=== PATIENT | female | born 1965 | race Caucasian/White ===

== ENCOUNTER 2016-11-15 17:09 | Emergency (ER) | payer OTHER ==
[2016-11-15 17:20] VITALS: TEMP 97.5
--- NOTE | 2016-11-15 17:53 | EDPHY ---
H & P Stated Complaint: awakened at 0400 with cp/l shoulder pain/resolved/dizzyness this afternoon Time Seen by Provider: 11/15/16 17:53 HPI/ROS: HPI: This is a 51-year-old female who presents with Chief Complaint: Chest discomfort Location: Chest Quality: Discomfort Duration: started at 0400 Signs and Symptoms: No nausea, no vomiting, no shortness of breath, no sweating , no palpitations, + cardiac awareness Timing: Sudden, lasting 10 minutes, resolved Severity: [id number] Context: Patient reports with complaints of waking this morning awakened chest discomfort this does dull and mild that lasted 10 minutes, nonradiating, self resolved without any treatment. This afternoon approximately 2 hours ago she was at yoga meditating when she felt her heart beating loudly and felt mild dizziness; denies heart racing/palpitations/room spinning. No fever/cough. Patient has history of hypertension and reports compliance taking amlodipine and hydrochlorothiazide. Patient does report she has only had 1 glass of water today. She reports no prior cardiac history/has never had a stress test. She did have an EGD 2-3 years ago and was diagnosed with gastritis and H pylori. She noted that she was anxious at times at during this period but has not had similar episodes since. She ate Risotto and drink wine last night. Grandparents on both sides have cardiac issues but her parents do not. Modifying Factors: None Comment: ROS: see HPI Constitutional: No fever, no chills, no weight loss Eyes: No blurred vision Respiratory: No shortness of breath, no cough Cardiovascular: + chest pain Gastrointestinal: No nausea, no vomiting, no diarrhea Genitourinary: No dysuria Extremities: No myalgias Neurologic: No weakness, no numbness Skin: No rashes Hematologic: No bruising, no bleeding MEDICAL/SURGICAL/SOCIAL HISTORY: Medical history: Generally healthy. Does not take any regular medications. Surgical history: Denies Social history: . CONSTITUTIONAL: Pleasant calm adult white female, appears younger than stated age, awake and alert, no obvious distress HEENT: Atraumatic and normocephalic, PERRL, EOMI. Tympanic membranes clear. Oropharynx clear, no exudate and moist pink mucosa. Airway patent. No lymphadenopathy. No meningismus. Cardiovascular: Normal S1/S2, mild tachycardia, regular rhythm, without murmur rub or gallop. PULMONARY/CHEST: Symmetrical and nontender. Clear to auscultation bilaterally. Good air movement. No accessory muscle usage. ABDOMEN: Soft, nondistended, nontender, no rebound, no guarding, no peritoneal signs, no masses or organomegaly. No CVAT. EXTREMITIES: 2/2 pulses, no deformities, no clubbing, no cyanosis or edema. NEUROLOGICAL: no focal neuro deficits. GCS 15. SKIN: Warm and dry, no erythema. no rash. Good capillary refill. Source: Patient Exam Limitations: No limitations - Personal History LMP (Females 10-55): 1-7 Days Ago Current Tetanus/Diphtheria Vaccine: Yes - Medical/Surgical History Hx Asthma: No Hx Chronic Respiratory Disease: No Hx Diabetes: No Hx Cardiac Disease: No Hx Renal Disease: No Hx Cirrhosis: No Hx Alcoholism: No Hx HIV/AIDS: No Hx Splenectomy or Spleen Trauma: No Other PMH: htn - Social History Smoking Status: Never smoked Constitutional: Initial Vital Signs Temperature (C) 36.4 C 11/15/16 17:17 Heart Rate 113 H 11/15/16 17:17 Respiratory Rate 20 11/15/16 17:17 Blood Pressure 173/96 H 11/15/16 17:17 O2 Sat (%) 98 11/15/16 17:17 O2 Delivery Mode Room Air Allergies/Adverse Reactions: thimerosal Allergy (Verified 11/15/16 17:16) Home Medications: Medication Instructions Recorded Amlodipine Besylate 11/15/16 Hydrochlorothiazide 11/15/16 Medical Decision Making - Diagnostics Imaging Results: Imaging Impressions Chest X-Ray 11/15/16 18:02 Impression: No acute thoracic abnormality. Procedures: 12 lead EKG: Indication: Chest discomfort Rhythm: Sinus tachycardia, rate of 101 beats per minute [place]: Normal Intervals: Normal QRS: Normal ST segments: Normal INTERPRETATION: Normal EKG The 12 lead EKG was interpreted by myself and with attending. ED Course/Re-evaluation: EKG, chest x-ray, labs ordered Noted to be mild tachycardic upon arrival; given 1 L normal saline SANDOVAL risk score equals 19; which is low risk D-dimer/proBNP and 1st troponin/TSH are unremarkable EKG does not show any acute skin changes Chest x-ray reviewed and shows no pneumothorax/effusion/opacity After 1 L of normal saline tachycardia resolved and heart remain remained in the 70s and 80s for the remainder 3 hours. 2145: 2nd troponin is negative Patient will be discharged home with Cardiology follow-up recommendation for outpatient nuclear stress test. Repeat 3 hour troponin negative Patient is currently pain-free. Suspect mild dehydration cause increased heart rate and patient was sensitive to this physiological change. Due to her GI history, family history and age; recommend follow up with Gastroenterology and Cardiology Differential Diagnosis: Chest pain including but not limited to myocardial ischemia, pulmonary embolus, chest wall pain, pleural inflammation and pulmonary infectious causes. - Data Points Laboratory Results: Laboratory Results 11/15/16 17:40 11/15/16 17:40 11/15/16 11/15/16 11/15/16 21:19 17:40 17:40 WBC RBC Hgb Hct MCV MCH MCHC RDW Plt Count MPV Neut % (Auto) Lymph % (Auto) [place] % (Auto) Eos % (Auto) Baso % (Auto) Nucleat RBC Rel Count Absolute Neuts (auto) Absolute Lymphs (auto) Absolute Monos (auto) Absolute Eos (auto) Absolute Basos (auto) Absolute Nucleated RBC Immature Gran % Immature Gran # PT 12.4 SEC SEC (12.0-15.0) INR 0.93 (0.83-1.16) APTT 23.5 SEC SEC (23.0-38.0) D-Dimer < 0.27 ug/mLFEU ug/mLFEU (0.00-0.50) Sodium 137 mEq/L mEq/L (134-144) Potassium 3.5 mEq/L mEq/L (3.5-5.2) Chloride 101 mEq/L mEq/L (97-110) Carbon Dioxide 18 mEq/l L mEq/l (22-31) Anion Gap 18 mEq/L H mEq/L (8-16) BUN 16 mg/dL mg/dL (7-23) Creatinine 0.8 mg/dL mg/dL (0.6-1.0) Estimated GFR > 60 Glucose 95 mg/dL mg/dL (70-100) Calcium 10.2 mg/dL mg/dL (8.5-10.4) Total Bilirubin 0.7 mg/dL mg/dL (0.1-1.4) Conjugated Bilirubin 0.3 mg/dL mg/dL (0.0-0.5) Unconjugated Bilirubin 0.4 mg/dL mg/dL (0.0-1.1) AST 26 IU/L IU/L (14-46) ALT 43 IU/L IU/L (9-52) Alkaline Phosphatase 58 IU/L IU/L (38-126) Troponin I < 0.012 ng/mL ng/mL < 0.012 ng/mL ng/mL (0.000-0.034) (0.000-0.034) NT-Pro-B Natriuret Pep 99 pg/mL pg/mL (0-125) Total Protein 8.1 g/dL g/dL (6.3-8.2) Albumin 5.1 g/dL H g/dL (3.5-5.0) Lipase 122 IU/L IU/L (23-300) TSH 3.520 uIU/mL uIU/mL (0.465-4.680) 11/15/16 17:40 WBC 11.19 10^3/uL H 10^3/uL (3.80-9.50) RBC 4.96 10^6/uL 10^6/uL (4.18-5.33) Hgb 16.1 g/dL g/dL (12.6-16.3) Hct 44.9 % % (38.0-47.0) MCV 90.5 fL fL (81.5-99.8) MCH 32.5 pg pg (27.9-34.1) MCHC 35.9 g/dL g/dL (32.4-36.7) RDW 11.9 % % (11.5-15.2) Plt Count 334 10^3/uL 10^3/uL (150-400) MPV 9.5 fL fL (8.7-11.7) Neut % (Auto) 72.2 % % (39.3-74.2) Lymph % (Auto) 19.4 % % (15.0-45.0) [place] % (Auto) 7.3 % % (4.5-13.0) Eos % (Auto) 0.3 % L % (0.6-7.6) Baso % (Auto) 0.4 % % (0.3-1.7) Nucleat RBC Rel Count 0.0 % % (0.0-0.2) Absolute Neuts (auto) 8.08 10^3/uL H 10^3/uL (1.70-6.50) Absolute Lymphs (auto) 2.17 10^3/uL 10^3/uL (1.00-3.00) Absolute Monos (auto) 0.82 10^3/uL H 10^3/uL (0.30-0.80) Absolute Eos (auto) 0.03 10^3/uL 10^3/uL (0.03-0.40) Absolute Basos (auto) 0.05 10^3/uL 10^3/uL (0.02-0.10) Absolute Nucleated RBC 0.00 10^3/uL 10^3/uL (0-0.01) Immature Gran % 0.4 % % (0.0-1.1) Immature Gran # 0.04 10^3/uL 10^3/uL (0.00-0.10) PT INR APTT D-Dimer Sodium Potassium Chloride Carbon Dioxide Anion Gap BUN Creatinine Estimated GFR Glucose Calcium Total Bilirubin Conjugated Bilirubin Unconjugated Bilirubin AST ALT Alkaline Phosphatase Troponin I NT-Pro-B Natriuret Pep Total Protein Albumin Lipase TSH Medications Given: Discontinued Medications Sodium Chloride (Ns) 1,000 mls @ 0 mls/hr IV EDNOW ONE; Wide Open PRN Reason: Protocol Stop: 11/15/16 18:03 Last Admin: 11/15/16 18:33 Dose: 1,000 mls Departure - Departure Disposition: Home, Routine, Self-Care Clinical Impression: Atypical chest pain, Essential hypertension Condition: Good Instructions: Noncardiac Chest Pain (ED) Additional Instructions: Please follow-up with your primary care provider within the next 3-5 days as well as make follow-up appointment with Gastroenterology and Cardiology. Referrals: Angela Genao MD [Primary Care Provider] - As per Instructions Holland Valles MD [Medical Doctor] - As per Instructions
[2016-11-15 18:00] VITALS: RESP 16
[2016-11-15] MEDS ORDERED: NS 1,000 ML IV ONE (18:02)
[2016-11-15 18:12] LABS: % IMMATURE GRANULYOCYTES 0.4 % (0.0-1.1); ABSOLUTE IMMATURE GRANULOCYTES 0.04 10^3/uL (0.00-0.10); ADD DIFF? NO; ADD MORPH? NO; ADD SCAN? NO; ATYPICAL LYMPHOCYTE FLAG 0 (0-99); FRAGMENT RBC FLAG 0 (0-99); HEMATOCRIT 44.9 % (38.0-47.0); HEMOGLOBIN 16.1 g/dL (12.6-16.3); LEFT SHIFT FLG 0 (0-99); LIPEMIA HEMOLYSIS FLAG 90 (0-99); MEAN CELL HEMOGLOBIN 32.5 pg (27.9-34.1); MEAN CELL HEMOGLOBIN CONCENTR. 35.9 g/dL (32.4-36.7); MEAN CELL VOLUME 90.5 fL (81.5-99.8); MEAN PLATELET VOLUME 9.5 fL (8.7-11.7); PLATELET CLUMPS FLAG 0 (0-99); PLATELET COUNT 334 10^3/uL (150-400); RED BLOOD CELL COUNT 4.96 10^6/uL (4.18-5.33); RED CELL DISTRIBUTION WIDTH 11.9 % (11.5-15.2)
[2016-11-15 18:21] LABS: INR 0.93 (0.83-1.16); PROTIME(PATIENT) 12.4 SEC (12.0-15.0)
[2016-11-15 18:22] LABS: APTT 23.5 SEC (23.0-38.0)
[2016-11-15 18:30] LABS: ALANINE AMINOTRANSFERASE 43 IU/L (9-52); ALBUMIN 5.1 g/dL (3.5-5.0); ALKALINE PHOSPHATASE 58 IU/L (38-126); ANION GAP 18 mEq/L (8-16); ASPARTATE AMINOTRANSFERASE 26 IU/L (14-46); BILIRUBIN,TOTAL 0.7 mg/dL (0.1-1.4); BILIRUBIN-CONJUGATED 0.3 mg/dL (0.0-0.5); BILIRUBIN-UNCONJUGATED 0.4 mg/dL (0.0-1.1); CALCIUM 10.2 mg/dL (8.5-10.4); CARBON DIOXIDE 18 mEq/l (22-31); CHLORIDE 101 mEq/L (97-110); CREATININE 0.8 mg/dL (0.6-1.0); GLOMERULAR FILTRATION RATE > 60; GLUCOSE 95 mg/dL (70-100); POTASSIUM 3.5 mEq/L (3.5-5.2); SODIUM 137 mEq/L (134-144); TOTAL PROTEIN 8.1 g/dL (6.3-8.2)
[2016-11-15 18:43] LABS: TROPONIN I < 0.012 ng/mL (0.000-0.034)
--- NOTE | 2016-11-15 22:16 | CPEKG ---
Heart Rate: 101 RR Interval: 594 P-R Interval: 124 QRSD Interval: 72 QT Interval: 324 QTC Interval: 420 P [place]: 81 QRS [place]: 46 T Wave [place]: -81 EKG Severity - ABNORMAL ECG - EKG Impression: SINUS TACHYCARDIA EKG Impression: RIGHT ATRIAL ABNORMALITY Preliminary Awaiting MD Review
[2016-11-15 22:25] VITALS: BP 160/94; PULSE 106; O2SAT 96
== END 2016-11-15 22:23 | disposition home or self-care (01) ==
DX: R07.89 Other chest pain (principal); I10 Essential (primary) hypertension; E86.9 Volume depletion, unspecified